=== PATIENT | female | born 1950 | race African-American/Black ===

== ENCOUNTER → 2016-08-01 16:52 | Outpatient (CLI) | payer MEDICARE | END | disposition home or self-care (01) | LOC: D.MAMMO 09:00 | DX: R92.8 Other abnormal and inconclusive findings on diagnostic imaging of breast (principal) ==

== ENCOUNTER 2016-12-11 11:25 | Outpatient (CLI) | payer MEDICARE | END 2016-12-11 11:56 | LOC: D.MAMMO 11:25 | DX: R92.8 Other abnormal and inconclusive findings on diagnostic imaging of breast (principal) ==